=== PATIENT | male | born 1945 | race Caucasian/White ===

== ENCOUNTER → 2019-02-22 09:10 | Day surgery (SDC) | payer MEDICARE, BC ==
--- NOTE | 2019-02-12 06:35 | HP ---
CC: Dr. Junior; Dr. Debra Colón * ADMITTING HISTORY AND PHYSICAL: DATE OF ADMISSION: 02/22/19 ADMITTING DIAGNOSIS: Bladder lesion. PLANNED PROCEDURES: Cystoscopy and transurethral resection of bladder lesion. SURGEON: Dr. Stephane Rodriguez. HISTORY OF PRESENT ILLNESS: Ar Adam is a 73-year-old gentleman with a longstanding history of BPH and bladder calculi. He has undergone transurethral resection of prostate on 2 separate occasions in [place] and had recently been seen by me for followup for complaints of increased urinary frequency and was noted on cystoscopy to have a solid lesion in the posterior bladder wall. A CT urogram was obtained, which revealed benign findings involving the kidneys including bilateral renal cysts and right renal calculi. In addition, he was noted to have splenomegaly and also lymph node enlargement, which I have told him to follow up with Dr. Junior. Because of the findings on cystoscopy, he is now being brought in for transurethral resection and biopsies of this bladder lesion. PAST MEDICAL HISTORY: Significant for: 1. History of thoracic aortic aneurysm. 2. History of atrial fibrillation. 3. Hyperlipidemia. 4. Hypertension. 5. BPH. 6. History of bladder calculi. PAST SURGICAL HISTORY: Significant for transurethral resection of prostate in 2006 and again in 2016, also for removal of osteochondroma from the right ankle at age 14. MEDICATIONS ON ADMISSION: 1. Coreg 25 mg b.i.d. 2. Diltiazem CD 120 mg a day. 3. Norvasc 5 mg daily. 4. Chlorthalidone 25 mg daily. 5. K-Melodie 10 mEq twice 2 tablets daily. 6. Aspirin 81 mg daily. ALLERGIES: ERYTHROMYCIN. FAMILY HISTORY: Negative for bladder cancer. Positive for prostate cancer ( brother). SOCIAL HISTORY: Smoking History: He is a former cigarette and pipe smoker who quit about 30 years ago and smoked for a few years prior to that. REVIEW OF SYSTEMS: He is otherwise in good health. There is no history of diabetes mellitus or any other major systemic illness. He is fairly active physically. PHYSICAL EXAMINATION GENERAL: Reveals a pleasant healthy-appearing gentleman. VITAL SIGNS: Blood pressure is 122/76, pulse 56 per minute, oxygen saturation 98% on room air, temperature 96. LUNGS: Clear bilaterally. CARDIOVASCULAR: Regular rate and rhythm. S1, S2. ABDOMEN: Soft without masses. IMPRESSION: A 73-year-old gentleman with a solid lesion noted in the bladder on cystoscopy. I have discussed the procedure in detail and the plan is for cystoscopy and transurethral resection of bladder lesion. [id number]/[facility] #: [id number] MTDD
[~2019-02-22 09:10] MED LIST: Acetaminophen TAB* 325 MG PO PRN; Buffered Lidocaine 1% SYRIN* 1 ML/SYRINGE INTRADERM ONE; Dexamethasone IV* 4 MG/ML 1 ML (4 MG) ONE; DiMENhydriNATE IV* 50 MG/ML VIAL IV PUSH PRN; Furosemide IV* 10 MG/ML 2 ML VIAL (20 MG) ONE; KETAMINE HCL* 50 MG/ML 10 ML VIAL ONE; Ketorolac INJ* 30 MG/ML 1 ML VIAL IV PRN; Ketorolac INJ* 30 MG/ML 1 ML VIAL ONE; Lactated Ringers 1000 ML Bag* 1,000 ML IV SCH; Lidocaine 2% PF * 5 ML VIAL ONE; Metoclopramide IV* 5 MG/ML 2 ML VIAL ONE; Midazolam* 1 MG/ML 2 ML VIAL (2 MG) ONE; Naloxone* 0.4 MG/ML 1 ML VIAL IV PRN; Ondansetron INJ* 2 MG/ML VIAL ONE; Propofol* 10 MG/ML 20 ML BTL ONE; Propofol* 500 MG/50 ML BTL ONE; cefTRIAXone(*) 2 GM ADDV.VIAL IVPB ONE; fentaNYL* 50 MCG/ML 2 ML VIAL (100 MCG VIAL) IV PRN; oxyCODONE TAB* 5 MG TAB PO PRN
[2019-02-22 15:11] VITALS: BP 126/68
--- NOTE | 2019-02-22 21:39 | OP ---
CC: Dr. Miladys Junior * DATE OF OPERATION: 02/22/19 - [facility] DATE OF : 41 SURGEON: Stephane Rodriguez MD ANESTHESIOLOGIST: Dr. Lopez. ANESTHESIA: Spinal. PRE-OP DIAGNOSIS: Bladder lesion. POST-OP DIAGNOSIS: Bladder lesion. OPERATIVE PROCEDURE: Cystoscopy, transurethral resection of bladder lesion ( aggregate 5 to 6 cm). POSTOPERATIVE CONDITION: Stable. BLOOD LOSS: Less than 25 cc. INDICATIONS: Ar Adam is a 73-year-old gentleman with longstanding history of BPH and recurrent bladder calculi, who had 2 surgical procedures done in [place] over the last 15 or so years. He was recently seen for increasing urinary frequency and was noticed to have the above described solid lesion in the posterior bladder wall. While this does not have a typical appearance of transitional cell tumor, it does look suspicious for a neoplasm and he is now being brought in for transurethral resection and biopsy of the bladder lesion. OPERATIVE FINDINGS: 1. Iinh-zq-zblxybed regrowth of prostate tissue with elevated bladder neck. 2. Solid lesion posterior bladder wall (does not have physical appearance of transitional cell tumor). POSTOPERATIVE CONDITION: Stable. DESCRIPTION OF PROCEDURE: After induction of spinal anesthesia, the patient was placed in dorsal lithotomy position. Sequential compression devices were in place and functioning. Initial cystoscopy revealed a mild stricture at the meatus and normal appearance in the remainder of the urethra and mild-to- moderate enlargement of the prostate with an elevated bladder neck. The right and left ureteral orifices were identified. In the posterior bladder wall, there was a solid lesion with some hyperemic changes over the mucosa and increased vascularity noted. A small bladder diverticulum was noted in the posterior bladder wall on the left side. The remainder of the bladder was otherwise unremarkable. Initially using the biopsy forceps, territory service representative biopsies were obtained and sent for histopathology. Next, a resectoscope was introduced and deeper resection of the bladder lesion was carried out. The resected tissue was sent for histopathology and hemostasis was secured using the coagulation current. At the end of the procedure, hemostasis was satisfactory and there was no evidence of bladder perforation. A 22-Faroese Dumont catheter was placed for bladder drainage. The patient tolerated the procedure satisfactorily and was transferred back to the recovery area in stable condition. [id number]/[facility] #: [id number] [facility]
== END | disposition home or self-care (01) ==
LOC: OR 09:10
PROVIDERS: ATTEND Urology
DX: C67.4 Malignant neoplasm of posterior wall of bladder (principal); N40.1 Benign prostatic hyperplasia with lower urinary tract symptoms; R35.0 Frequency of micturition; Z87.891 Personal history of nicotine dependence; I48.91 Unspecified atrial fibrillation; E78.5 Hyperlipidemia, unspecified; I10 Essential (primary) hypertension; I71.2 Thoracic aortic aneurysm, without rupture
CPT/HCPCS: 88305; J0696; J1100; J1885; J1940; J2250; J2405; J2704; J2765

== ENCOUNTER 2019-05-14 06:30 | Day surgery (SDC) | payer MEDICARE, BC ==
[~2019-05-14 06:30] MED LIST changes: -Acetaminophen TAB* 325 MG PO PRN; -Dexamethasone IV* 4 MG/ML 1 ML (4 MG) ONE; -DiMENhydriNATE IV* 50 MG/ML VIAL IV PUSH PRN; -Furosemide IV* 10 MG/ML 2 ML VIAL (20 MG) ONE; -KETAMINE HCL* 50 MG/ML 10 ML VIAL ONE; -Ketorolac INJ* 30 MG/ML 1 ML VIAL IV PRN; -Ketorolac INJ* 30 MG/ML 1 ML VIAL ONE; -Lidocaine 2% PF * 5 ML VIAL ONE; -Metoclopramide IV* 5 MG/ML 2 ML VIAL ONE; -Midazolam* 1 MG/ML 2 ML VIAL (2 MG) ONE; -Naloxone* 0.4 MG/ML 1 ML VIAL IV PRN; -Ondansetron INJ* 2 MG/ML VIAL ONE; -Propofol* 10 MG/ML 20 ML BTL ONE; -Propofol* 500 MG/50 ML BTL ONE; -cefTRIAXone(*) 2 GM ADDV.VIAL IVPB ONE; -fentaNYL* 50 MCG/ML 2 ML VIAL (100 MCG VIAL) IV PRN; -oxyCODONE TAB* 5 MG TAB PO PRN
[2019-05-14] MEDS ORDERED: ceFAZolin 2 GM PREMIX in ORs 2 GM/50 ML BAG ONE (06:47)
[2019-05-14] MEDS ORDERED: Buffered Lidocaine 1% SYRIN* 1 ML/SYRINGE INTRADERM ONE (06:48)
[2019-05-14] MEDS ORDERED: Lidocaine 1% INJ* 10 MG/ML 30 ML SDV ONE (08:08)
[2019-05-14] MEDS ORDERED: Bupivacaine 0.5%* 50 ML MDV VIAL ONE (08:09)
[2019-05-14] MEDS ORDERED: Midazolam* 1 MG/ML 5 ML VIAL (5 MG) ONE (08:23)
[2019-05-14] MEDS ORDERED: Ondansetron INJ* 2 MG/ML VIAL ONE (08:43)
[2019-05-14] MEDS ORDERED: Propofol* 10 MG/ML 20 ML BTL ONE (08:43)
[2019-05-14] MEDS ORDERED: fentaNYL* 50 MCG/ML 2 ML VIAL (100 MCG VIAL) ONE (08:44)
[2019-05-14] MEDS ORDERED: Lidocaine 2% PF * 5 ML VIAL ONE (08:44)
[2019-05-14] MEDS ORDERED: Naloxone* 0.4 MG/ML 1 ML VIAL IV PRN (09:08)
[2019-05-14] MEDS ORDERED: Acetaminophen TAB* 325 MG PO PRN (09:08)
[2019-05-14] MEDS ORDERED: Acetaminophen TAB* 325 MG ONE (10:21)
--- NOTE | 2019-05-14 10:24 | BRIEFOPN ---
Brief Operative/Procedure Note - Operation Details Pre-Op Diagnosis: Bladder cancer Post-Op Diagnosis: Same Procedures: Port placement Surgeon(s)/Proceduralists: Elvia Samuels MD Anesthesia: MAC Estimated Blood Loss: Minimal Findings: Successful placement of 8Fr Power Port via right subclavian vein Specimen(s)/Culture(s) Description: None Complications: None
[2019-05-14 10:56] VITALS: BP 145/78
[2019-05-14 11:48] LABS: Albumin 3.6 g/dL (3.2-5.2); Albumin/Globulin Ratio 1.8 (1-3); BUN/Creatinine Ratio 15.1 (8-20); Calcium 8.8 mg/dL (8.6-10.3); EGFR African American 104.6 (>60); EGFR Non-African American 86.5 (>60); Magnesium 1.8 mg/dL (1.9-2.7); Potassium 3.8 mmol/L (3.5-5.0); Total Bilirubin 0.5 mg/dL (0.2-1.0); Total Protein 5.6 g/dL (6.4-8.9)
--- NOTE | 2019-05-15 07:47 | OP ---
Operative Report - Blank - Operative Report Date of Operation: 05/14/19 Note: PRE-OP DX: Bladder cancer POST-OP DX: Same PROCEDURE: Port placement SURGEON: Elvia Samuels MD ANESTHESIA: MAC EBL: Minimal FININDGS: Successful placement of 8Fr PowerPort via right subclavian vein INDICATION: Ar Adam is a 74 year-old who was diagnosed with bladder cancer. He was seen in the clinic to discuss port placement for chemotherapy. Risks were discussed including but not limited to bleeding, infection, arrhythmia, or pneumothorax. DESCRIPTION: The patient was brought to the OR and placed in the supine position on the OR table. SCDs were placed. The patient was warmed. He received cefazolin 2g. MAC anesthesia was administered. The right neck and upper chest were prepped and draped in the usual sterile fashion. A timeout confirming the patient's name, date of , and procedure was called. Lidocaine 1% was injected inferior and deep to the right clavicle. The subclavian vein was cannulated with a needle. The wire was advanced through the needle, and the needle was removed. Fluoroscopy confirmed correct placement of the wire in the superior vena cava. Next, lidocaine 1% was injected into the skin at the planned port site. A transverse incision was made with a scalpel and carried down to the fascia with electrocautery. A pocket under the skin was made for the port using blunt dissection and electrocautery. A stab incision was made at the wire. The catheter was then tunneled through the subcutaneous tissue from the wire to the pocket. The vein was dilated, and then the pull-away sheath was placed into the vein. Fluoroscopy confirmed placement of the sheath in the superior vena cava. The catheter was advanced into the sheath as the sheath was pulled away and out. Under fluoroscopy, the catheter was pulled back until the tip was at the cavoatrial junction. Blood was easily drawn back through the catheter, and then the catheter was flushed with saline. The catheter was then cut to the appropriate length. The catheter was connected to the port stem, and the catheter lock advanced. The port was placed into the subcutaneous pocket and sutured to the fascia using 3-0 Prolene on each side. A Welch needle was used to draw back blood, however there was no blood return. The port was removed from the pocket and the catheter disconnected. Again blood could be drawn back easily from the catheter. The port was flushed again, and there was a blood clot flushed from out of the port. The catheter was then reconnected to the port stem, and the catheter lock advanced. The port was tested again. This time there was return of blood, and the port and catheter flushed easily with saline. The port was placed into the subcutaneous pocket and sutured to the fascia using 3-0 Prolene on each side. A total of 5 mL of heparin 5000 units/5 mL was then flushed through the port and catheter. The subcutaneous pocket was closed with interrupted 3-0 Vicryl in the deep dermal layer. The skin was closed with a running 4-0 monocryl. The stab incision was closed with 4-0 monocryl. Steri-Strips were placed over both incisions. The chest incision was covered with sterile gauze and Tegaderm. Needle and sponge counts were correct. The patient tolerated the procedure well. He was brought to recovery in stable condition. A chest x-ray in recovery confirmed correct placement of the port and catheter in the superior vena cava without complication.
== END 2019-05-14 11:01 | disposition home or self-care (01) ==
LOC: OR 06:30
PROVIDERS: ATTEND Surgery Surgical Critical Care
DX: C67.9 Malignant neoplasm of bladder, unspecified (principal); I10 Essential (primary) hypertension; I48.0 Paroxysmal atrial fibrillation; E78.5 Hyperlipidemia, unspecified; R00.2 Palpitations; I71.2 Thoracic aortic aneurysm, without rupture; Z87.891 Personal history of nicotine dependence; Z85.828 Personal history of other malignant neoplasm of skin
CPT/HCPCS: 36415; 71045; 76000; 80053; 83735; A9270-GY; C1788; J0690; J1642; J2250; J2405; J2704; J3010; J3490

== ENCOUNTER 2020-12-11 08:26 | Inpatient (IN) ==
[2020-12-11 09:03] LABS: Hematocrit 29 % (42-52); Hemoglobin 10.1 g/dL (14.0-18.0); Mean Corpuscular HGB Conc 35 g/dL (31-36); Mean Corpuscular Hemoglobin 32 pg (27-31); Mean Corpuscular Volume 92 fL (80-94); Mean Platelet Volume 7.1 fL (7.4-10.4); Platelet Count 163 10^3/uL (150-450); Red Blood Count 3.15 10^6 /uL (4.18-5.48); Red Cell Distribution Width 15 % (10-15); White Blood Count 6.2 10^3/uL (3.5-10.8)
[2020-12-11 09:09] LABS: ABS Eosinophils 0.2 10^3/ul (0-0.6); ABS Lymphocytes 1.9 10^3/ul (1.0-4.8); ABS Monocytes 0.5 10^3/ul (0-0.8); ABS Neutrophils 3.6 10^3/ul (1.5-7.7); Eosinophil % 2.6 %; Lymphocyte % 30.7 %
[2020-12-11 09:14] LABS: Activated Partial Thrombo Time 28.9 seconds (26.0-38.0); INR 1.04 (0.86-1.15)
[2020-12-11 09:23] LABS: Albumin 4.1 g/dL (3.2-5.2); Albumin/Globulin Ratio 1.7 (1-3); Calcium 9.4 mg/dL (8.6-10.3); Globulin 2.4 g/dL (2-4); Potassium 4.2 mmol/L (3.5-5.0); Total Bilirubin 0.7 mg/dL (0.2-1.0); Total Protein 6.5 g/dL (6.4-8.9)
[2020-12-11 18:11] LABS: Rapid COVID-19 Molecular Undetected (Undetected)
[2020-12-11] MEDS: Potassium Chlor 10 meq TAB PO SCH (20:53)
[2020-12-12 05:00] LABS: Hematocrit 28 % (42-52); Hemoglobin 9.6 g/dL (14.0-18.0); Mean Corpuscular HGB Conc 34 g/dL (31-36); Mean Corpuscular Hemoglobin 32 pg (27-31); Mean Corpuscular Volume 93 fL (80-94); Mean Platelet Volume 7.6 fL (7.4-10.4); Platelet Count 150 10^3/uL (150-450); Red Blood Count 3.01 10^6 /uL (4.18-5.48); Red Cell Distribution Width 15 % (10-15); White Blood Count 5.7 10^3/uL (3.5-10.8)
[2020-12-12 05:20] LABS: Albumin 3.8 g/dL (3.2-5.2); Albumin/Globulin Ratio 1.8 (1-3); Calcium 8.7 mg/dL (8.6-10.3); Globulin 2.1 g/dL (2-4); Total Bilirubin 0.6 mg/dL (0.2-1.0); Total Protein 5.9 g/dL (6.4-8.9)
[2020-12-12 06:35] LABS: ABS Eosinophils 0.2 10^3/ul (0-0.6); ABS Lymphocytes 1.8 10^3/ul (1.0-4.8); ABS Monocytes 0.4 10^3/ul (0-0.8); ABS Neutrophils 3.2 10^3/ul (1.5-7.7); Eosinophil % 3.8 %; Lymphocyte % 32.1 %
[2020-12-12 08:20] VITALS: BP 146/71
[2020-12-12] MEDS ORDERED: MAGNESIUM 250 MG PO SCH (09:00)
[2020-12-12] MEDS: Potassium Chlor 10 meq TAB PO SCH (09:28)
== END 2020-12-12 11:10 | disposition home or self-care (01) | DRG 181 ==
LOC: CHOA 08:26 → MEDTELE 15:55
PROVIDERS: ADMIT Internal Medicine Hematology & Oncology; ATTEND Internal Medicine Hematology & Oncology